=== PATIENT | male | born 1970 | race Caucasian/White ===

== ENCOUNTER 2017-03-05 08:55 | Day surgery (SDC) | payer OTHER ==
[~2017-03-05 08:55] MED LIST: ACETAMINOPHEN 1,000 MG/100 ML VIAL IV SCH; FAMOTIDINE IN SALINE, ISO-OSM 20 MG/50 ML PIGGYBACK IV SCH; LACTATED RINGERS 1,000 ML IV SCH; LIDOCAINE HCL 1% 20 ML VIAL SUBCUT ONE; MIDAZOLAM HCL 2 MG/2 ML SYR IV ONE
[2017-03-05] MEDS ORDERED: ceFAZolin 1 GM in NORMAL SALINE MINI-BAG+ 100 ML IV ONE ×2 (09:41→13:29)
[2017-03-05] MEDS ORDERED: MIDAZOLAM HCL 2 MG/2 ML VIAL ONE (10:49)
[2017-03-05] MEDS ORDERED: ceFAZolin 1 GM/10 ML VIAL ONE (10:49)
[2017-03-05] MEDS ORDERED: FAMOTIDINE IN SALINE, ISO-OSM 50 ML IV ONE (10:49)
[2017-03-05] MEDS ORDERED: ACETAMINOPHEN 1,000 MG/100 ML VIAL IV ONE (10:49)
[2017-03-05] MEDS ORDERED: BUPIVACAINE/EPI 0.25% 1 VIAL VIAL ONE (11:21)
[2017-03-05] MEDS ORDERED: FENTANYL 100 MCG/2 ML VIAL ONE (13:05)
[2017-03-05] MEDS ORDERED: DEXAMETHASONE 10 MG/ML VIAL ONE (13:05)
[2017-03-05] MEDS ORDERED: ONDANSETRON HCL 4 MG/2 ML VIAL ONE (13:05)
[2017-03-05] MEDS ORDERED: FENTANYL 100 MCG/2 ML VIAL IV PRN (13:29)
[2017-03-05] MEDS ORDERED: ONDANSETRON HCL 4 MG/2 ML VIAL IV PRN (13:29)
[2017-03-05] MEDS ORDERED: MIDAZOLAM HCL 2 MG/2 ML SYR IV ONE (13:29)
[2017-03-05] MEDS ORDERED: LIDOCAINE HCL 1% 20 ML VIAL SUBCUT ONE (13:29)
[2017-03-05] MEDS ORDERED: ACETAMINOPHEN 1,000 MG/100 ML VIAL IV SCH (13:29)
[2017-03-05] MEDS ORDERED: FAMOTIDINE IN SALINE, ISO-OSM 20 MG/50 ML PIGGYBACK IV SCH (13:29)
[2017-03-05] MEDS ORDERED: MORPHINE SULFATE 10 MG/ML SYR IV PRN (13:29)
[2017-03-05] MEDS ORDERED: HYDROmorphone HCL 1 MG/ML SYR IV PRN (13:29)
[2017-03-05] MEDS ORDERED: LACTATED RINGERS 1,000 ML IV SCH ×2 (13:29→14:00)
[2017-03-05] MEDS ORDERED: BACITRACIN 14 APP/14 GM TUBE TOPICAL ONE (13:43)
[2017-03-05] MEDS ORDERED: KETOROLAC TROMETHAMINE 30 MG/ML VIAL ONE (14:16)
[2017-03-05 14:29] VITALS: TEMP 97.7
--- NOTE | 2017-03-05 15:01 | OPERATIVE REPORT ---
DATE OF SURGERY: 03/05/17 SURGEON: Angel Fenton DO ANESTHESIA: General. PREOPERATIVE DIAGNOSIS 1. Right knee medial meniscal tear with medial femoral condyle chondromalacia. POSTOPERATIVE DIAGNOSES 1. Right knee medial meniscal tear with medial femoral condyle chondromalacia, grade 2 and synovitis. 2. Patellar chondromalacia grade 3. OPERATION PERFORMED: Right knee arthroscopy with partial medial meniscectomy, abrasion chondroplasty and synovectomy in 3 compartments. ESTIMATED BLOOD LOSS: Minimal. COMPLICATIONS: None. TOTAL TOURNIQUET TIME: 50 minutes. PROCEDURE NOTE: The patient was brought to the operating room suite and after administration of general anesthesia the right lower extremity was prepped and draped in a sterile fashion. A well padded tourniquet to the right proximal thigh. The right leg was positioned in a well-padded leg levi. Anterior lateral portal was created first after first injecting 0.25% bupivacaine. The anterior medial portal was created under direct visualization after first inserting a spinal needle. Diagnostic arthroscopy revealed a right knee medial meniscal tear with medial femoral condyle chondromalacia, grade 2 and synovitis , and patellar chondromalacia grade 3. The patient had a large blunted parrot beak medial meniscal tear which was displaced out into the notch. A series of arthroscopic biters and ganesh were utilized to remove this torn meniscus. A large portion of the anterior fat pad and hypertrophied synovium was removed from the patellofemoral compartment and the medial and lateral compartments of the knee for visualization purposes and due to hypertrophy and synovitis of the synovium. The medial femoral condyle was also debrided around a grade 2 chondromalacia defect. The patella was also debrided of its loose cartilage fragments and cartilage fraying with its associated grade 2 and 3 chondromalacia. The medial meniscus was saucerized back to a stable margin. The lateral compartment was completely unaffected by any pathology with a normal appearing articular surface, both on the tibia and femur and a normal appearing lateral meniscus. The only exception being the synovitis in the lateral compartment. The ligamentum mucosum covering the anterior cruciate ligament was torn and frayed and was also debrided. The anterior cruciate ligament and posterior cruciate ligament appeared to be intact as they were probed, and an arthroscopic Patricia maneuver was performed to check the anterior cruciate ligament as the torn ligamentum mucosum did raise some concern for potential pathology in these 2 structures. The knee was drained of all arthroscopic fluid, and the 2 incision sites were closed utilizing simple interrupted 3-0 nylon sutures. The incisions were dressed with bacitracin ointment, Xeroform, 4x4s, ABDs, cast padding and an Nelson bandage. The patient was transferred from the operating room suite to the recovery room in stable condition. SANDEEP
[2017-03-05 15:02] VITALS: O2SAT 92
[2017-03-05 15:03] VITALS: BP 131/69; PULSE 45
[2017-03-05 15:04] VITALS: RESP 21
--- NOTE | 2017-03-14 14:45 | PREOPERATIVE H&P ---
History of Present Illness (Angel Fenton DO; 02/18/2017 4:33 PM) The patient is a 46 year old male. Patient presents complaining of persistent right knee pain following a fall on ice at work. He has had physical therapy, steroid injections, activity modifications and has been wearing a hinged knee brace. He has not had any improvement. Problem List/Past Medical (Angel FentonDO; 02/18/2017 4:33 PM) Contusion of right knee, initial encounter (S80.01XA) Sprain of posterior cruciate ligament of right knee, initial encounter (S83.521A ) Allergies (Angel FentonDO; 02/18/2017 4:33 PM) No Known Drug [id number]/2017 Social History (Angel DO Jossy; 02/18/2017 4:33 PM) Alcohol Use Drinks Socially. Tobacco Use Never smoker. Review of Systems (Angel Fenton ; 02/18/2017 4:33 PM) General Not Present- Chills and Fever. Skin Not Present- Erythema, Skin Color Changes and Skin Problems. HEENT Not Present- Sleep Apnea. Neck Not Present- Neck Pain. Respiratory Not Present- Cough and Shortness of Breath. Cardiovascular Not Present- Chest Pain, Difficulty Breathing On Exertion, Fainting and Leg Pain and/or Swelling. Gastrointestinal Not Present- Abdominal Pain, Nausea and Vomiting. Male Genitourinary Not Present- Painful Urination and Urethral Discharge. Musculoskeletal Not Present- Decreased Range of Motion, Joint Pain, Joint Stiffness, Joint Swelling, Muscle Pain and Muscle Weakness. Neurological Not Present- Dizziness, Focal Neurological Symptoms, Numbness in extremities, Trouble walking and Weakness. Psychiatric Not Present- Anorexia, Anxiety and Depression. Endocrine Not Present- Weight Loss. Hematology Not Present- Bleeding Problems, DVT and Easy Bruising. Physical Exam (Angel Fenton DO; 02/18/2017 4:38 PM) The physical exam findings are as follows: Note:Physical examination of the RIGHT knee demonstrates no skin defects with normal appearance, color and temperature. There is no effusion. There is no swelling or edema. The peripheral neurovascular status is intact with normal sensation and adequate perfusion. Patella grind is negative with no crepitance. Both flexion and extension are +5/5 for strength. Range of motion is from 0 of extension to 130 of flexion with no pain at full flexion. There is no crepitance with range of motion. There is no medial or lateral instability or laxity with varus and valgus moment at both 0 of extension and 30 of flexion. There is no anterior or posterior instability or laxity with a negative Patricia's, negative anterior drawer and negative posterior drawer. There is no tenderness to palpation over the inferior pole of the patella, the tibial tubercle or the patella tendon. There is MEDIAL joint line tenderness to palpation. Mallory's test is negative. MRI of the right knee demonstrates a tear of the posterior medial of the meniscus, also noted is increased uptake in the posterior cruciate ligament. Also noted are a couple of ganglion cysts. Assessment & Plan (Angel Fenton DO; 02/18/2017 4:41 PM) Tear of medial meniscus of right knee, unspecified tear type, unspecified whether old or current tear, initial encounter (S83.916A) Impression: After educating the patient regarding treatment options with their associated risks and benefits, the patient elected to proceed with surgical treatment of the injury/pathology with RIGHT KNEE ARTHROSCOPY. The risks and benefits of the specific procedure were explained and all questions and concerns were addressed and answered. Post operative rehabilitation requirements and expectations for optimal outcome were reviewed and the patient confirmed understanding these and committed to compliance. All questions answered. The patient will be optimized medically by consultation with their primary care physician prior to their procedure. Signed by Angel Fenton DO (02/18/2017 4:41 PM) Patient seen at bedside and no interval changes are noted. Signed Angel Fenton DO 03/05/2017. SANDEEP
== END 2017-03-05 15:05 | disposition home or self-care (01) ==
LOC: SDS 08:55
PROVIDERS: ATTEND Orthopaedic Surgery
DX: S83.241A Other tear of medial meniscus, current injury, right knee, initial encounter (principal); M22.41 Chondromalacia patellae, right knee
CPT/HCPCS: J0690; J1100; J1885; J2250; J2405; J3010